=== PATIENT | male | born 1995 | race Caucasian/White ===

== ENCOUNTER 2017-01-22 09:38 | Observation (INO) | payer BC, OTHER ==
[2017-01-22 09:40] VITALS: BP 153/66; PULSE 118; RESP 24; TEMP 97.9; O2SAT 95
[2017-01-22 09:52] VITALS: RESP 20
[2017-01-22] MEDS ORDERED: VANCOMYCIN INJ 1,250 MG in SODIUM CHLOR 0.9% 250 ML INJ 250 ML IV ONE (10:00)
[2017-01-22] MEDS ORDERED: HYDROmorphone HCL PF 1 MG/ML VIAL IV PUSH ONE ×2 (10:15→12:30)
[2017-01-22 10:33] LABS: AUTOMATED NEUTROPHIL # 6.8 TH/MM3 (1.8-7.7); BASOPHIL # 0.2 TH/MM3 (0-0.2); BASOPHIL % 1.7 % (0.0-2.0); EOSINOPHIL # 0.2 TH/MM3 (0-0.4); EOSINOPHIL % 1.7 % (0.0-4.0); HEMATOCRIT 43.8 % (39.0-51.0); LYMPH % 20.5 % (9.0-44.0); LYMPHOCYTE # 2.1 TH/MM3 (1.0-4.8); MEAN CELL VOLUME 93.6 FL (80.0-100.0); MEAN CORPUSCULAR HEMOGLOBIN 31.9 PG (27.0-34.0); MONO % 8.2 % (0.0-8.0); NEUT % 67.9 % (16.0-70.0); PLATELET COUNT 236 TH/MM3 (150-450); RED BLOOD COUNT 4.68 MIL/MM3 (4.50-5.90); RED CELL DISTRIBUTION WIDTH 13.3 % (11.6-17.2)
[2017-01-22 10:39] LABS: HEMO FLAGS AUTO DIFF
[2017-01-22 10:59] LABS: ANION GAP 9 MEQ/L (5-15); AST (GOT) 43 U/L (15-37); BICARBONATE 26.4 MEQ/L (21.0-32.0); BLOOD UREA NITROGEN 11 MG/DL (7-18); CHLORIDE 104 MEQ/L (98-107); GLOMERULAR FILTRATION RATE 116 ML/MIN (>89); POTASSIUM 3.6 MEQ/L (3.5-5.1); SODIUM (NA) 139 MEQ/L (136-145)
--- NOTE | 2017-01-22 11:02 | RADRPT ---
EXAM DATE/TIME: 01/22/2017 10:32 [facility] COMPARISON: No previous studies available for comparison. INDICATIONS : Inflammation. Pt. has severe pain, swelling, and redness in left, first digit that is now radiating u p his arm. MEDICAL HISTORY : None. SURGICAL HISTORY : None. ENCOUNTER: Initial ACUITY: 4 - 6 days PAIN SCORE: 10/10 LOCATION: Left thumb. FINDINGS: There is generalized soft tissue swelling of the first digit and thenar eminence. Alignment is anato bairon. Fracture is not appreciated. CONCLUSION: Generalized soft tissue swelling. There is no evidence for fracture or radiopaque foreign body. Inf lammatory process is suspected. Reinaldo Padron MD FACR on January 22, 2017 at 10:47 Board Certified Radiologist. This report was verified electronically.
[2017-01-22 11:03] LABS: ALKALINE PHOSPHATASE 83 U/L (45-117); ALT (GPT) 107 U/L (12-78)
[2017-01-22 11:18] LABS: SCAN/DIFF AUTO DIFF CONFIRMED
--- NOTE | 2017-01-22 11:41 | PD ---
HPI Chief Complaint: Skin Problem Time Seen by Provider: 09:50 Travel History International Travel<30 days: No Contact w/Intl Traveler<30days: No Traveled to known affect area: No History of Present Illness HPI This is a 23-year-old male who presents to the emergency department with 5 days of increasing pain involving his left thumb, constant, moderate severity, spreading to involve his second digit and hand. He denies any fevers or chills. He has a remote history of IV drug use but says he hasn't used in a year. He thinks he got bit by a bug. PFSH Past Medical History Asthma: No Heart Rhythm Problems: No Cardiovascular Problems: No Chest Pain: No Cystic Fibrosis: No Diminished Hearing: No Headaches: No Hypertension: No Neurologic: No Respiratory: No Migraines: No Seizures: No Sickle Cell Disease: No Sleep Apnea: No Past Surgical History Abdominal Surgery: No Appendectomy: No Cardiac Surgery: No Cholecystectomy: No Ear Surgery: Yes (TUBES(PLASTIC EARS)) Endocrine Surgery: No Eye Surgery: No Genitourinary Surgery: No Gynecologic Surgery: No Neurologic Surgery: No Oral Surgery: No Thoracic Surgery: No Social History Alcohol Use: Yes (SOCIAL) Tobacco Use: Yes (1PPWEEK) Substance Use: Yes (pt states "everything".. DENIES RECENT USE) Allergies-Medications (Allergen,Severity, Reaction): Coded Allergies: No Known Allergies (Verified , 02/23/16) Reported Meds & Prescriptions Reported Meds & Active Scripts Active Active Prescriptions or Reported Medications Unobtainable Review of Systems Except as stated in HPI: all other systems reviewed are Neg Physical Exam Narrative GENERAL:Well appearing, no acute distress SKIN: Erythema and swelling of the left first digit with focal fluctuance immediately over the interphalangeal joint on the dorsal surface. Pain with flexion at the interphalangeal joint. Some erythema over the thenar eminence. HEAD: Atraumatic. Normocephalic. EYES: Pupils equal and round. No injection or drainage. ENT: Moist mucous membranes NECK: Trachea midline. CARDIOVASCULAR: Regular rate and rhythm. No murmur appreciated. RESPIRATORY: Clear to auscultation. Breath sounds equal bilaterally. GASTROINTESTINAL: Abdomen soft, non-tender, nondistended. MUSCULOSKELETAL: No obvious deformities. NEUROLOGICAL: Awake and alert. No obvious cranial nerve deficits. Moving all extremities. PSYCHIATRIC: Appropriate mood and affect; insight and judgment normal. Data Data Last Documented VS Vital Signs Date Time Temp Pulse Resp B/P Pulse Ox O2 Delivery O2 Flow Rate FiO2 01/22/17 11:47 95 18 149/61 97 01/22/17 09:40 97.9 Room Air Orders Complete Blood Count With Diff (01/22/17 09:54) Comprehensive Metabolic Panel (01/22/17 09:54) W[place]gren Sedimentation Rate (01/22/17 09:54) C-Reactive Protein (Crp) (01/22/17 09:54) Blood Culture (01/22/17 09:54) Vancomycin Inj (Vancomycin Inj) (01/22/17 10:00) Finger ([id number]) (01/22/17 ) Hydromorphone Pf Inj (Dilaudid Pf Inj) (01/22/17 10:15) Blood Culture (01/22/17 10:15) Ed Poc Ultrasound (01/22/17 ) Us Soft Tissue (01/22/17 ) Lidocaine Pf 1% Inj (Xylocaine-Mpf 1% In (01/22/17 12:15) Hydromorphone Pf Inj (Dilaudid Pf Inj) (01/22/17 12:30) Admit Order (Ed Use Only) (01/22/17 12:36) Labs Laboratory Tests Test 01/22/17 10:18 White Blood Count 10.0 TH/MM3 Red Blood Count 4.68 MIL/MM3 Hemoglobin 14.9 GM/DL Hematocrit 43.8 % Mean Corpuscular Volume 93.6 FL Mean Corpuscular Hemoglobin 31.9 PG Mean Corpuscular Hemoglobin 34.0 % Concent Red Cell Distribution Width 13.3 % Platelet Count 236 TH/MM3 Mean Platelet Volume 9.1 FL Neutrophils (%) (Auto) 67.9 % Lymphocytes (%) (Auto) 20.5 % Monocytes (%) (Auto) 8.2 % Eosinophils (%) (Auto) 1.7 % Basophils (%) (Auto) 1.7 % Neutrophils # (Auto) 6.8 TH/MM3 Lymphocytes # (Auto) 2.1 TH/MM3 Monocytes # (Auto) 0.8 TH/MM3 Eosinophils # (Auto) 0.2 TH/MM3 Basophils # (Auto) 0.2 TH/MM3 CBC Comment AUTO DIFF Differential Comment AUTO DIFF CONFIRMED Erythrocyte Sedimentation Rate 5 mm/hr Sodium Level 139 MEQ/L Potassium Level 3.6 MEQ/L Chloride Level 104 MEQ/L Carbon Dioxide Level 26.4 MEQ/L Anion Gap 9 MEQ/L Blood Urea Nitrogen 11 MG/DL Creatinine 0.83 MG/DL Estimat Glomerular Filtration 116 ML/MIN Rate Random Glucose 78 MG/DL Calcium Level 9.1 MG/DL Total Bilirubin 1.0 MG/DL Aspartate Amino Transf 43 U/L (AST/SGOT) Alanine Aminotransferase 107 U/L (ALT/SGPT) Alkaline Phosphatase 83 U/L C-Reactive Protein 0.49 MG/DL Total Protein 7.5 GM/DL Albumin 4.4 GM/DL MDM Medical Decision Making Medical Screen Exam Complete: Yes Emergency Medical Condition: Yes Interpretation(s) Afebrile, tachycardic, hypertensive No leukocytosis Sedimentation rate is 5 CRP is 0.49 Electrolytes are reassuring Last 24 hours Impressions Soft Tissue Ultrasound 01/22/17 0000 Signed Impressions: Service Date/Time: Sunday, January 22, 2017 10:57 - CONCLUSION: Indurated tissue probably inflammatory without abscess formation.. Reinaldo Padron MD FACR Differential Diagnosis Abscess, cellulitis, septic arthritis, flexor tenosynovitis Narrative Course This is a 21-year-old male who presents to the emergency department with swelling of his left thumb. He was placed on a monitor and an IV was established. He does have a history of IV drug use. Ultrasound was obtained which demonstrates a phlegmon approximately 2 cm. A bedside incision and drainage was performed after discussion with Dr. Lazaro. Patient was placed on vancomycin and will be admitted for IV antibiotics. Cultures were obtained to rule out endocarditis. Diagnosis Primary Impression: Abscess of thumb Qualified Code: L02.512 - Abscess of thumb, left Admitting Information Admitting Physician Requests: Admit Scripts Unable to Obtain Active Prescriptions or Reported Meds Sury Haji MD January 22, 2017 11:41
[2017-01-22 11:47] VITALS: BP 149/61; PULSE 95; RESP 18; O2SAT 97
--- NOTE | 2017-01-22 11:47 | RADRPT ---
EXAM DATE/TIME: 01/22/2017 10:57 [facility] COMPARISON: No previous studies available for comparison. INDICATIONS : Left thumb swelling and pain. MEDICAL HISTORY : Left thumb pain and swelling. SURGICAL HISTORY : None. ENCOUNTER: Initial ACUITY: 4-6 days PAIN SCORE: 10/10 LOCATION: Left thumb. AREA EVALUATED: Left thumb. FINDINGS: As the complex area measuring 2 cm that is confined to the deep and superficial tissues without defin ed fluid collection. Early premature process without abscess would be consideration. CONCLUSION: Indurated tissue probably inflammatory without abscess formation.. Reinaldo Padron MD FACR on January 22, 2017 at 11:24 Board Certified Radiologist. This report was verified electronically.
[2017-01-22] MEDS ORDERED: LIDOCAINE HCL 1% PF 30 ML VIAL NERV BLOCK ONE (12:15)
[2017-01-22 12:48] VITALS: BP 121/67; PULSE 81; RESP 16; O2SAT 98
--- NOTE | 2017-01-22 13:00 | PD ---
Physical Exam Date Seen by Provider: January 22, 2017 Time Seen by Provider: 12:59 Narrative 21-year-old male that presents to the ED for evaluation of abscess to the left first digit. I was asked by my attending to incise and drain abscess. Please refer to her note. Data Data Last Documented VS Vital Signs Date Time Temp Pulse Resp B/P Pulse Ox O2 Delivery O2 Flow Rate FiO2 01/22/17 11:47 95 18 149/61 97 01/22/17 09:40 97.9 Room Air Orders Complete Blood Count With Diff (01/22/17 09:54) Comprehensive Metabolic Panel (01/22/17 09:54) Westergren Sedimentation Rate (01/22/17 09:54) C-Reactive Protein (Crp) (01/22/17 09:54) Blood Culture (01/22/17 09:54) Vancomycin Inj (Vancomycin Inj) (01/22/17 10:00) Finger ([id number]) (01/22/17 ) Hydromorphone Pf Inj (Dilaudid Pf Inj) (01/22/17 10:15) Blood Culture (01/22/17 10:15) Ed Poc Ultrasound (01/22/17 ) Us Soft Tissue (01/22/17 ) Lidocaine Pf 1% Inj (Xylocaine-Mpf 1% In (01/22/17 12:15) Hydromorphone Pf Inj (Dilaudid Pf Inj) (01/22/17 12:30) Admit Order (Ed Use Only) (01/22/17 12:36) Labs Laboratory Tests Test 01/22/17 10:18 White Blood Count 10.0 TH/MM3 Red Blood Count 4.68 MIL/MM3 Hemoglobin 14.9 GM/DL Hematocrit 43.8 % Mean Corpuscular Volume 93.6 FL Mean Corpuscular Hemoglobin 31.9 PG Mean Corpuscular Hemoglobin 34.0 % Concent Red Cell Distribution Width 13.3 % Platelet Count 236 TH/MM3 Mean Platelet Volume 9.1 FL Neutrophils (%) (Auto) 67.9 % Lymphocytes (%) (Auto) 20.5 % Monocytes (%) (Auto) 8.2 % Eosinophils (%) (Auto) 1.7 % Basophils (%) (Auto) 1.7 % Neutrophils # (Auto) 6.8 TH/MM3 Lymphocytes # (Auto) 2.1 TH/MM3 Monocytes # (Auto) 0.8 TH/MM3 Eosinophils # (Auto) 0.2 TH/MM3 Basophils # (Auto) 0.2 TH/MM3 CBC Comment AUTO DIFF Differential Comment AUTO DIFF CONFIRMED Erythrocyte Sedimentation Rate 5 mm/hr Sodium Level 139 MEQ/L Potassium Level 3.6 MEQ/L Chloride Level 104 MEQ/L Carbon Dioxide Level 26.4 MEQ/L Anion Gap 9 MEQ/L Blood Urea Nitrogen 11 MG/DL Creatinine 0.83 MG/DL Estimat Glomerular Filtration 116 ML/MIN Rate Random Glucose 78 MG/DL Calcium Level 9.1 MG/DL Total Bilirubin 1.0 MG/DL Aspartate Amino Transf 43 U/L (AST/SGOT) Alanine Aminotransferase 107 U/L (ALT/SGPT) Alkaline Phosphatase 83 U/L C-Reactive Protein 0.49 MG/DL Total Protein 7.5 GM/DL Albumin 4.4 GM/DL [facility] Medical Record Reviewed: Yes Supervised Visit with DAVID: No Procedures Procedure Narrative After the risks and benefits were discussed the following procedure was performed: INCISION AND DRAINAGE OF ABSCESS: The area was prepped and was sterilely draped. A subcutaneous wheal of 1 % Xylocaine with a total number 10 mL was used to anesthetize the area by digital block. The area was properly anesthetized. A number 11 scalpel was used to make a 1 -cm incision across the area of the abscess. Cultures were obtained. The abscess was drained an irrigated with normal saline. Quarter inch iodoform packing was placed in the wound. Sterile dressing applied. Patient advised to have packing removed in two days. Scripts Unable to Obtain Active Prescriptions or Reported Meds Conor Cooper January 22, 2017 13:00
--- NOTE | 2017-01-22 13:15 | HHI.HP ---
[facility] Service Family Medicine Primary Care Physician No Primary Care Physician Admission Diagnosis abscess Diagnoses: International Travel<30 Days: No Contact w/Intl Traveler<30days: No Known Affected Area: No History of Present Illness This is a 21-year-old male with past medical history significant for IV drug use. He is coming to the ED for 5 day history of increasing pain in his left thumb. He has been having some swelling of the left thumb throughout that timeframe as well and some erythema of the thumb. 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 He also thinks he may been bitten by a bug. The pain continued to worsen and he tried to self medicate. He took one antibiotic pill that his boss gave him on Wednesday01/20/17, he said that helps that day but then it worsened more the next. As for the pain he tried to self medicate by taking whatever he could off the streets. He tried morphine, heroin, and methamphetamine. Says that the last couple days have been a blur. Anytime that he moves his hand he gets severe pain. The pain had been slowly progressing up his hand into his arm and chest. He felt the pain in his hand constantly but worsened with movement. At the time of exam I&D was performed and large amount of blood and pus was extracted. He says since then the pain in his hand has greatly improved. Of note he believes he had tetanus shot 4 years ago when he joined the . (Aki Calvillo MD R2) Review of Systems Constitutional: COMPLAINS OF: Fatigue, Fever, Change in appetite (decreased), DENIES: Weight gain, Weight loss Endocrine: DENIES: Heat/cold intolerance Eyes: DENIES: Blurred vision, Vision loss Ears, nose, mouth, throat: DENIES: Hearing loss, Oral lesions, Throat pain, Running Nose Respiratory: DENIES: Cough, Sputum production, Shortness of breath Cardiovascular: COMPLAINS OF: Chest pain (pressure) Gastrointestinal: DENIES: Abdominal pain, Constipation, Diarrhea, Nausea, Vomiting Musculoskeletal: COMPLAINS OF: Joint pain (Left Thumb), DENIES: Muscle aches, Joint Swelling, Back pain Integumentary: COMPLAINS OF: Rash (cellulitis) Hematologic/lymphatic: DENIES: Bruising Neurologic: DENIES: Abnormal gait, Seizures, Tremor Psychiatric: DENIES: Anxiety, Depression (Aik Calvillo MD R2) Past Family Social History Past Medical History Denies Past Surgical History Left ear cosmetic Reported Medications Reported Meds & Active Scripts Active Active Prescriptions or Reported Medications Unobtainable (Aki Calvillo MD R2) Allergies: Coded Allergies: No Known Allergies (Verified , 02/23/16) Family History none reported Social History Live in [place] with roommate and girlfriend smoke working to quit at 2 cigarettes a day, started at 18 Occasional alcohol last drink last night was 2 shots of whiskey and 4 pack of beer. Denies withdraw Used IV morphine and meth and synthetic marijuana recently to dual the pain Smokes weed (Aki Calvillo MD R2) Physical Exam Vital Signs Vital Signs Date Time Temp Pulse Resp B/P Pulse Ox O2 Delivery O2 Flow Rate FiO2 01/22/17 12:48 81 16 121/67 98 01/22/17 11:47 95 18 149/61 97 01/22/17 09:52 20 01/22/17 09:40 97.9 118 24 153/66 95 Room Air Physical Exam GENERAL:Well appearing, no acute distress SKIN: Erythema and swelling of the left first digit with incision on the anterior aspect of the thumb. Pain with flexion at the interphalangeal joint. Some erythema over the thenar eminence. HEAD: Atraumatic. Normocephalic. EYES: Pupils equal and round. No injection or drainage. ENT: Moist mucous membranes NECK: Trachea midline. CARDIOVASCULAR: Regular rate and rhythm. No murmur appreciated. RESPIRATORY: Clear to auscultation. Breath sounds equal bilaterally. GASTROINTESTINAL: Abdomen soft, non-tender, nondistended. MUSCULOSKELETAL: No obvious deformities. NEUROLOGICAL: Awake and alert. No obvious cranial nerve deficits. Moving all extremities. PSYCHIATRIC: Appropriate mood and affect; insight and judgment normal. Laboratory Laboratory Tests Test 01/22/17 10:18 White Blood Count 10.0 Red Blood Count 4.68 Hemoglobin 14.9 Hematocrit 43.8 Mean Corpuscular Volume 93.6 Mean Corpuscular Hemoglobin 31.9 Mean Corpuscular Hemoglobin 34.0 Concent Red Cell Distribution Width 13.3 Platelet Count 236 Mean Platelet Volume 9.1 Neutrophils (%) (Auto) 67.9 Lymphocytes (%) (Auto) 20.5 Monocytes (%) (Auto) 8.2 Eosinophils (%) (Auto) 1.7 Basophils (%) (Auto) 1.7 Neutrophils # (Auto) 6.8 Lymphocytes # (Auto) 2.1 Monocytes # (Auto) 0.8 Eosinophils # (Auto) 0.2 Basophils # (Auto) 0.2 CBC Comment AUTO DIFF Differential Comment AUTO DIFF CONFIRMED Erythrocyte Sedimentation Rate 5 Sodium Level 139 Potassium Level 3.6 Chloride Level 104 Carbon Dioxide Level 26.4 Anion Gap 9 Blood Urea Nitrogen 11 Creatinine 0.83 Estimat Glomerular Filtration 116 Rate Random Glucose 78 Calcium Level 9.1 Total Bilirubin 1.0 Aspartate Amino Transf 43 (AST/SGOT) Alanine Aminotransferase 107 (ALT/SGPT) Alkaline Phosphatase 83 C-Reactive Protein 0.49 Total Protein 7.5 Albumin 4.4 Date/Time Procedure Status Source Growth 01/22/17 10:55 Aerobic Blood Culture Received Blood Peripheral Pending 01/22/17 10:55 Anaerobic Blood Culture Received Blood Peripheral Pending (Aki Calvillo MD R2) Result Diagram: 01/22/17 1018 01/22/17 1018 Imaging Last Impressions Soft Tissue Ultrasound 01/22/17 0000 Signed Impressions: Service Date/Time: Sunday, January 22, 2017 10:57 - CONCLUSION: Indurated tissue probably inflammatory without abscess formation.. Reinaldo Padron MD FACR (Aki Calvillo MD R2) Assessment and Plan Assessment and Plan This is a 21-year-old male with past medical history significant for IV drug use. Being admitted for abscess and cellulitis of the left thumb. Code Status Full code Discussed Condition With [facility]: Dr. Lake (Aki Calvillo MD R2) Attending Attestation Patient seen and examined. Case reviewed and discussed with the resident team. Agree with plan of care as discussed with me and documented in the resident note. pt seen on admission (Yenifer Lake MD) Problem List: (1) Abscess of thumb Status: Acute Plan: Abscess seen with ultrasound. Status post drainage on 01/22/17. * Admit to observation. * Hand surgery consulted. * Vancomycin 1 g IV every 12 hours * Pain control with [place] per pain scale and morphine as breakthrough pain * CBC, BMP ordered for the a.m. * Cultures pending * Wound cultures from ID pending (2) Drug abuse Status: Acute Plan: History of IV drug abuse. Current self-medication with morphine, methamphetamine, heroin for pain from abscess. * [facility] protocol (3) Nutrition, metabolism, and development symptoms Status: Acute Plan: Diet: Regular diet, anticipate nothing by mouth at midnight for possible surgery (patient refuses to be NPO at this time or else we'll leave) Out of bed ad brady. Monitor electrolytes and replace accordingly Fluids by mouth Vitals every 4 DVD prophylaxis with SCDs, holding pharmaceutical prophylaxis for possible surgery (Aki Calvillo MD R2) Problem Qualifiers (1) Abscess of thumb: Qualified Code: L02.512 - Abscess of thumb, left Aki Calvillo MD R2 January 22, 2017 13:15 Yenifer Lake MD January 23, 2017 11:52
[2017-01-22] MEDS ORDERED: ACETAMINOPHEN/HYDROcodone 325 MG/5 MG TAB PO PRN (13:30)
[2017-01-22] MEDS ORDERED: ACETAMINOPHEN/HYDROcodone 325 MG/7.5 MG TAB PO PRN (13:30)
[2017-01-22] MEDS ORDERED: SODIUM CHLORIDE 0.9% FLUSH 10 ML FLUSH IV FLUSH PRN ×2 (13:30→13:45)
[2017-01-22] MEDS ORDERED: DIPHTH/TETANUS/ACEL PERTUSSIS (BOOSTER) 0.5 ML VIAL/PFS IM ONE (13:45)
[2017-01-22] MEDS ORDERED: LORazepam 2 MG TAB PO PRN (13:45)
[2017-01-22] MEDS ORDERED: HYDROmorphone HCL PF 1 MG/ML VIAL IV PUSH PRN (13:45)
[2017-01-22] MEDS ORDERED: LORazepam 1 MG TAB PO PRN (13:45)
[2017-01-22] MEDS ORDERED: FLUMAZENIL 0.5 MG/5 ML VIAL IV PUSH PRN (13:45)
[2017-01-22] MEDS ORDERED: LORazepam 2 MG/ML VIAL IV PUSH PRN ×4 (13:45)
[2017-01-22 15:28] VITALS: BP 143/67; PULSE 87; RESP 21; TEMP 98; O2SAT 100
[2017-01-22] MEDS: SODIUM CHLORIDE 0.9% FLUSH 10 ML FLUSH IV FLUSH SCH (20:34)
[2017-01-22] MEDS: VANCOMYCIN INJ 1,000 MG in SODIUM CHLOR 0.9% 250 ML INJ 250 ML IV SCH (23:30)
[2017-01-23 05:36] VITALS: BP 122/75; PULSE 75; RESP 18; TEMP 98; O2SAT 96
[2017-01-23 08:25] LABS: AUTOMATED NEUTROPHIL # 10.4 TH/MM3 (1.8-7.7); BASOPHIL # 0.1 TH/MM3 (0-0.2); BASOPHIL % 0.4 % (0.0-2.0); EOSINOPHIL # 0.2 TH/MM3 (0-0.4); EOSINOPHIL % 1.7 % (0.0-4.0); HEMATOCRIT 45.6 % (39.0-51.0); HEMO FLAGS DIFF FINAL; LYMPH % 11.1 % (9.0-44.0); LYMPHOCYTE # 1.5 TH/MM3 (1.0-4.8); MEAN CELL VOLUME 93.9 FL (80.0-100.0); MEAN CORPUSCULAR HEMOGLOBIN 31.1 PG (27.0-34.0); MEAN CORPUSCULAR HGB CONC 33.1 % (32.0-36.0); MONO % 7.3 % (0.0-8.0); NEUT % 79.5 % (16.0-70.0); PLATELET COUNT 244 TH/MM3 (150-450); RED BLOOD COUNT 4.86 MIL/MM3 (4.50-5.90); RED CELL DISTRIBUTION WIDTH 13.1 % (11.6-17.2); WHITE BLOOD COUNT 13.1 TH/MM3 (4.0-11.0)
[2017-01-23 08:41] VITALS: BP 136/67; PULSE 80; RESP 18; TEMP 97.8; O2SAT 95
[2017-01-23 09:02] LABS: BICARBONATE 27.4 MEQ/L (21.0-32.0); POTASSIUM 3.9 MEQ/L (3.5-5.1)
[2017-01-23] MEDS: MULTIVITAMINS/MINERALS THERAPEUTIC TAB PO SCH (09:02)
[2017-01-23] MEDS: FOLIC ACID 1 MG TAB PO SCH (09:03)
[2017-01-23] MEDS: SODIUM CHLORIDE 0.9% FLUSH 10 ML FLUSH IV FLUSH SCH ×2 (09:03→21:12)
[2017-01-23] MEDS: THIAMINE HCL 100 MG TAB PO SCH (09:03)
[2017-01-23] MEDS: IBUPROFEN 800 MG TAB PO SCH ×3 (09:03→21:12)
[2017-01-23] MEDS: VANCOMYCIN INJ 1,000 MG in SODIUM CHLOR 0.9% 250 ML INJ 250 ML IV SCH ×2 (11:43→23:01)
--- NOTE | 2017-01-23 11:51 | HHI.HP ---
[facility] Service Family Medicine Primary Care Physician No Primary Care Physician Admission Diagnosis abscess Diagnoses: (1) Abscess of thumb Diagnosis: Principal (2) Drug abuse Diagnosis: Principal (3) Nutrition, metabolism, and development symptoms Diagnosis: Principal International Travel<30 Days: No Contact w/Intl Traveler<30days: No Known Affected Area: No History of Present Illness Mr Mata is a 21-year-old male with past medical history significant for IV drug use. He is coming to the ED for 5 day history of increasing pain in his left thumb. He has been having some swelling of the left thumb throughout that timeframe as well and some erythema of the thumb. 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 He also thinks he may been bitten by an insect. The pain continued to worsen and he tried to self medicate. He took one unknown antibiotic pill that his boss gave him on Wednesday01/20/17, he said that helped that day but then it worsened more the next. As for the pain he tried to self medicate by taking whatever he could off the streets. He tried morphine, heroin, and methamphetamine. Says that the last couple days before coming to the hospital have been a blur. Anytime that he moves his hand he gets severe pain. The pain had been slowly progressing up his hand into his arm and chest. He felt the pain in his hand constantly but worsened with movement. At the time of exam I&D was performed in the ED and large amount of blood and pus was extracted. He says since then the pain in his hand has greatly improved. Of note he believes he had tetanus shot 4 years ago when he joined the . Overnight he has continued to have erythema and edema of his hand. He has an increase in his WBC but only to 13 from 10. His area of erythema has extended into the palm of his hand from the thumb. He will not move his thumb because of pain and does have sensation in his hand and thumb. Review of Systems Other Constitutional: COMPLAINS OF: Fatigue, Fever, Change in appetite (decreased), DENIES: Weight gain, Weight loss Endocrine: DENIES: Heat/cold intolerance Eyes: DENIES: Blurred vision, Vision loss Ears, nose, mouth, throat: DENIES: Hearing loss, Oral lesions, Throat pain, Running Nose Respiratory: DENIES: Cough, Sputum production, Shortness of breath Cardiovascular: COMPLAINS OF: Chest pain (pressure) Gastrointestinal: DENIES: Abdominal pain, Constipation, Diarrhea, Nausea, Vomiting Musculoskeletal: COMPLAINS OF: Joint pain (Left Thumb), DENIES: Muscle aches, Joint Swelling, Back pain Integumentary: COMPLAINS OF: Rash (cellulitis) Hematologic/lymphatic: DENIES: Bruising Neurologic: DENIES: Abnormal gait, Seizures, Tremor Psychiatric: DENIES: Anxiety, Depression Past Family Social History Past Medical History Denies Past Surgical History Left ear cosmetic Allergies: Coded Allergies: No Known Allergies (Verified , 02/23/16) Family History none reported Social History Live in [place] with roommate and girlfriend smoke working to quit at 2 cigarettes a day, started at 18 Occasional alcohol last drink last night was 2 shots of whiskey and 4 pack of beer. Denies withdraw Used IV morphine and meth and synthetic marijuana recently to dual the pain Smokes weed Physical Exam Vital Signs Vital Signs Date Time Temp Pulse Resp B/P Pulse Ox O2 Delivery O2 Flow Rate FiO2 01/23/17 08:41 97.8 80 18 136/67 95 01/23/17 05:36 98.0 75 18 122/75 96 01/22/17 15:28 98.0 87 21 143/67 100 01/22/17 12:48 81 16 121/67 98 01/22/17 11:47 95 18 149/61 97 Physical Exam GENERAL:Well appearing, no acute distress except for pain in hand SKIN: Erythema and swelling of the left first digit with incision on the anterior aspect of the thumb. Pain with flexion at the interphalangeal joint. Some erythema over the thenar eminence. HEAD: Atraumatic. Normocephalic. EYES: Pupils equal and round. No injection or drainage. ENT: Moist mucous membranes NECK: Trachea midline. CARDIOVASCULAR: Regular rate and rhythm. No murmur appreciated. RESPIRATORY: Clear to auscultation. Breath sounds equal bilaterally. GASTROINTESTINAL: Abdomen soft, non-tender, nondistended. MUSCULOSKELETAL: No obvious deformities. NEUROLOGICAL: Awake and alert. No obvious cranial nerve deficits. Moving all extremities. PSYCHIATRIC: Appropriate mood and affect; insight and judgment normal. initially wanted to leave AMA but today seems to realize that this is a serious problem that needs adequate care Laboratory Laboratory Tests Test 01/23/17 01/23/17 07:45 09:10 White Blood Count 13.1 Red Blood Count 4.86 Hemoglobin 15.1 Hematocrit 45.6 Mean Corpuscular Volume 93.9 Mean Corpuscular Hemoglobin 31.1 Mean Corpuscular Hemoglobin 33.1 Concent Red Cell Distribution Width 13.1 Platelet Count 244 Mean Platelet Volume 9.4 Neutrophils (%) (Auto) 79.5 Lymphocytes (%) (Auto) 11.1 Monocytes (%) (Auto) 7.3 Eosinophils (%) (Auto) 1.7 Basophils (%) (Auto) 0.4 Neutrophils # (Auto) 10.4 Lymphocytes # (Auto) 1.5 Monocytes # (Auto) 1.0 Eosinophils # (Auto) 0.2 Basophils # (Auto) 0.1 CBC Comment DIFF FINAL Differential Comment Sodium Level 138 Potassium Level 3.9 Chloride Level 104 Carbon Dioxide Level 27.4 Anion Gap 7 Blood Urea Nitrogen 9 Creatinine 0.78 Estimat Glomerular Filtration 124 Rate Random Glucose 83 Calcium Level 8.8 Nasal Screen MRSA (PCR) MRSA DETECTED Date/Time Procedure Status Source Growth 01/23/17 09:10 Cancelled Nasopharyngeal 01/22/17 13:00 Gram Stain - Final Resulted Wound Finger 01/22/17 13:00 Wound Culture Resulted Wound Finger Pending 01/22/17 10:55 Aerobic Blood Culture - Preliminary Resulted Blood Peripheral NO GROWTH IN 1 DAY 01/22/17 10:55 Anaerobic Blood Culture - Preliminary Resulted Blood Peripheral NO GROWTH IN 1 DAY Result Diagram: 01/23/17 0745 01/23/17 0745 Imaging Last Impressions Soft Tissue Ultrasound 01/22/17 0000 Signed Impressions: Service Date/Time: Sunday, January 22, 2017 10:57 - CONCLUSION: Indurated tissue probably inflammatory without abscess formation.. Reinaldo Padron MD FACR Assessment and Plan Assessment and Plan This is a 21-year-old male with past medical history significant for IV drug use. Being admitted for abscess and cellulitis of the left thumb. Problem List: (1) Abscess of thumb Status: Acute Plan: Abscess seen with ultrasound. Status post drainage on 01/22/17. * Admitted to observation. * Hand surgery consulted. * Vancomycin 1 g IV every 12 hours * Pain control with [place] per pain scale and morphine as breakthrough pain * CBC, BMP ordered for today * Cultures pending * Wound cultures from ID pending so far , gram positive cocci in pairs. concern for staph aureus as he states he has had MRSA twice before (2) Drug abuse Status: Acute Plan: History of IV drug abuse. Current self-medication with morphine, methamphetamine, heroin for pain from abscess. * CIWA protocol (3) Nutrition, metabolism, and development symptoms Status: Acute Plan: Diet: Regular diet, anticipate nothing by mouth at midnight for possible surgery Unsure if he will need more extensive exploration of his hand with his swelling Out of bed ad brady. Monitor electrolytes and replace accordingly Fluids by mouth Vitals every 4 DVD prophylaxis with SCDs, holding pharmaceutical prophylaxis for possible surgery Problem Qualifiers (1) Abscess of thumb: Qualified Code: L02.512 - Abscess of thumb, left Yenifer Lake MD January 23, 2017 11:51
[2017-01-23 12:39] VITALS: BP 123/67; PULSE 73; RESP 18; TEMP 98; O2SAT 95
[2017-01-23 16:16] VITALS: BP 128/60; PULSE 68; RESP 18; TEMP 97.9; O2SAT 96
[2017-01-23 21:15] VITALS: BP 130/77; PULSE 82; RESP 20; TEMP 97.8; O2SAT 97
[2017-01-24 00:23] VITALS: BP 109/51; PULSE 70; RESP 21; TEMP 98; O2SAT 97
[2017-01-24 04:27] VITALS: BP 129/73; PULSE 65; RESP 20; O2SAT 98
[2017-01-24] MEDS: IBUPROFEN 800 MG TAB PO SCH (06:27)
[2017-01-24 07:43] LABS: AUTOMATED NEUTROPHIL # 6.9 TH/MM3 (1.8-7.7); BASOPHIL % 0.5 % (0.0-2.0); EOSINOPHIL # 0.2 TH/MM3 (0-0.4); EOSINOPHIL % 2.5 % (0.0-4.0); HEMATOCRIT 43.6 % (39.0-51.0); HEMO FLAGS DIFF FINAL; LYMPH % 14.7 % (9.0-44.0); LYMPHOCYTE # 1.4 TH/MM3 (1.0-4.8); MEAN CELL VOLUME 93.6 FL (80.0-100.0); MEAN CORPUSCULAR HEMOGLOBIN 31.8 PG (27.0-34.0); MONO % 7.5 % (0.0-8.0); NEUT % 74.8 % (16.0-70.0); PLATELET COUNT 247 TH/MM3 (150-450); RED BLOOD COUNT 4.66 MIL/MM3 (4.50-5.90); RED CELL DISTRIBUTION WIDTH 13.3 % (11.6-17.2); WHITE BLOOD COUNT 9.3 TH/MM3 (4.0-11.0)
[2017-01-24 08:32] VITALS: BP 128/60; PULSE 68; RESP 18; TEMP 98.2; O2SAT 96
[2017-01-24] MEDS: MULTIVITAMINS/MINERALS THERAPEUTIC TAB PO SCH (09:06)
[2017-01-24] MEDS: FOLIC ACID 1 MG TAB PO SCH (09:06)
[2017-01-24] MEDS: THIAMINE HCL 100 MG TAB PO SCH (09:07)
[2017-01-24] MEDS: SODIUM CHLORIDE 0.9% FLUSH 10 ML FLUSH IV FLUSH SCH (09:07)
--- NOTE | 2017-01-24 09:17 | HHI.FPPN ---
Subjective Remarks Patient was seen and examined this morning. He states he will leave this morning to take care of home matters which are urgent. He states his pain is 1-2 /10 in severity. He denies any fevers, chills. He agrees to take PO meds if script is given. He then urgently left the ED with IV still in place, was escorted back for IV removal. (Sabian Pacheco MD R1) Objective Vitals Vital Signs Date Time Temp Pulse Resp B/P Pulse Ox O2 Delivery O2 Flow Rate FiO2 01/24/17 08:32 98.2 68 18 128/60 96 01/24/17 04:27 65 20 129/73 98 01/24/17 00:23 98.0 70 21 109/51 97 01/23/17 21:15 97.8 82 20 130/77 97 01/23/17 16:16 97.9 68 18 128/60 96 01/23/17 12:39 98.0 73 18 123/67 95 I/O 01/23/17 01/23/17 01/23/17 01/24/17 01/24/17 01/24/17 07:00 15:00 23:00 07:00 15:00 23:00 Intake Total 200 ml 400 ml Output Total 500 ml 1000 ml Balance -300 ml -600 ml Intake Oral 200 ml 400 ml Output Urine Total 500 ml 1000 ml # Voids 1 1 (Sabina Pacheco MD R1) Result Diagram: 01/24/17 0722 01/23/17 0745 Objective Remarks General: well-appearing male sitting up in bed in no distress, eating breakfast. Left thumb wrapped in gauze, no surrounding erythema. Runs out of room to leave after phone conversation. Patient left AMA Medications and IVs Inpatient Medications Acetaminophen/ Hydrocodone Bitart 1 tab 1 tab Q4H PRN PO PAIN SCALE 6 TO 10; Start 01/22/17 at 13:30; Stop 01/24/17 at 09:29; Status DC Acetaminophen/ Hydrocodone Bitart ([place]ow 5-325 Mg) 1 tab Q4H PRN PO PAIN SCALE 1 TO 5; Start 01/22/17 at 13:30; Stop 01/24/17 at 09:29; Status DC Diphtheria/ Tetanus/Acell Pertussis (Boostrix Inj) 0.5 ml ONCE ONCE IM Last administered on 01/22/17 13:45; Start 01/22/17 at 13:45; Stop 01/22/17 at 14:32 ; Status DC Doxycycline Hyclate (Vibramycin) 100 mg BID PO ; Start 01/24/17 at 09:30; Stop 01/24/17 at 09:30; Status DC Flumazenil (Romazicon Inj) 0.2 mg Q1M PRN IV PUSH SEE LABEL COMMENTS; Start 08/29 at 13:45; Stop 01/24/17 at 09:29; Status DC Folic Acid (Folate) 1 mg DAILY PO Last administered on 01/24/17 09:06; Start 01/23/17 at 09:00; Stop 01/24/17 at 09:29; Status DC Hydromorphone HCl (Dilaudid Pf Inj) 1 mg Q4H PRN IV PUSH BREAKTHROUGH PAIN; Start 01/22/17 at 13:45; Stop 01/24/17 at 09:29; Status DC Ibuprofen (Motrin) 800 mg Q8HR PO Last administered on 01/24/17 06:27; Start 01/23/17 at 08:36; Stop 01/24/17 at 09:29; Status DC Lidocaine HCl (Xylocaine-Mpf 1% Inj) 10 ml ONCE ONCE NERV BLOCK Last administered on 01/22/17 12:15; Start 01/22/17 at 12:15; Stop 01/22/17 at 12:16 ; Status DC Lorazepam (Ativan Inj) 2 mg Q15M PRN IV PUSH CIWA > 20; Start 01/22/17 at 13:45 ; Stop 01/24/17 at 09:29; Status DC Lorazepam (Ativan) 2 mg Q2H PRN PO CIWA 11-14; Start 01/22/17 at 13:45; Stop at 09:29; Status DC Multivitamins/ Minerals Therapeutic (Theragran M Tab) 1 tab DAILY PO Last administered on 01/24/17 09:06; Start 01/23/17 at 09:00; Stop 01/24/17 at 09:16 ; Status DC Sodium Chloride (NS Flush) 2 ml UNSCH PRN IV FLUSH FLUSH AFTER USING IV ACCESS Last administered on 01/23/17 23:01; Start 01/22/17 at 13:30; Stop 01/24/17 at 09:29; Status DC Thiamine HCl (Vitamin B1) 100 mg DAILY PO Last administered on 01/24/17 09:07 ; Start 01/23/17 at 09:00; Stop 01/24/17 at 09:29; Status DC Trimethoprim/ Sulfamethoxazole (Bactrim Ds 800-160 Mg) 2 tab Q12HR PO ; Start at 09:30; Stop 01/24/17 at 09:30; Status DC Vancomycin HCl/ Sodium Chloride (Vancomycin Inj/ NS 250 ml Inj) 250 ml @ 250 mls/hr Q12H IV Last administered on 01/23/17 23:01; Start 01/22/17 at 23:00; Stop 01/24/17 at 09:16; Status DC (Sabina Pacheco MD R1) Urinary Catheter: No (Sabina Pacheco MD R1) Vascular Central Line Catheter: No (Sabina Pacheco MD R1) A/P Assessment and Plan This is a 21-year-old male with past medical history significant for IV drug use. Being admitted for abscess and cellulitis of the left thumb. Discharge Planning Left AMA -see AMA note (Sabina Pacheco MD R1) Attending Attestation Patient seen and examined. Case reviewed and discussed with the resident team. Agree with plan of care as discussed with me and documented in the resident note. (Yenifer Lake MD) Problem List: (1) Abscess of thumb Status: Acute Plan: Abscess seen with ultrasound. Status post drainage on 01/22/17. * Admitted to observation. * Hand surgery consulted, recommended I&D and home * Vancomycin 1 g IV every 12 hours x 2 days, given scripts for Doxy and Bactrim DS upon discharge AMA * Pain control with [place] per pain scale and morphine as breakthrough pain * CBC, BMP ordered for today * Cultures ++++MRSA * Wound cultures from ID pending so far , gram positive cocci in pairs. concern for staph aureus as he states he has had MRSA twice before (2) Drug abuse Status: Acute Plan: History of IV drug abuse. Current self-medication with morphine, methamphetamine, heroin for pain from abscess. * CIWA protocol * No pain medications given at discharge (3) Nutrition, metabolism, and development symptoms Status: Acute Plan: Diet: Regular diet, anticipate nothing by mouth at midnight for possible surgery Unsure if he will need more extensive exploration of his hand with his swelling Out of bed ad brady. Monitor electrolytes and replace accordingly Fluids by mouth Vitals every 4 DVD prophylaxis with SCDs, holding pharmaceutical prophylaxis for possible surgery (Sabina Pacheco MD R1) Problem Qualifiers (1) Abscess of thumb: Qualified Code: L02.512 - Abscess of thumb, left Sabina Pacheco MD R1 January 24, 2017 09:17 Yenifer Lake MD January 27, 2017 13:23
[2017-01-24] MEDS ORDERED: DOXY100C PO ×2 (09:20→09:22)
[2017-01-24] MEDS ORDERED: BACT800T5 PO (09:22)
--- NOTE | 2017-01-24 09:26 | PD.AMA ---
Against Medical Advice Note Diagnosis: (1) Abscess of thumb (2) Drug abuse Discharge Disposition: Against Medical Advice Pt Condition on Discharge: Stable Recommended Treatment Course Continued course of PO antibiotics, which were given by paper script to patient AMA Statement Patient Bret Mata has decided to leave the hospital against medical advice on 01/23/17. This patient has the capacity to refuse care and understands the risks of leaving, including permanent disability and/or , and has had an opportunity to ask questions about his condition. The patient has been informed that he may return for care at any time, and follow up has been arranged/advised. He was given Rx for Bactrim DS and Doxycycline, to complete a 10-day course of PO antibiotics. No follow-up plans were made. He should not be admitted to Family Medicine Service if he is re-admitted. Sabina Pacheco MD R1 January 24, 2017 09:26
[2017-01-24] MEDS ORDERED: DOXYCYCLINE HYCLATE 100 MG CAP PO SCH (09:30)
[2017-01-24] MEDS ORDERED: SULFAMETHOXAZOLE-TRIMETHOPRIM DS 800-160 MG TAB PO SCH (09:30)
--- NOTE | 2017-01-24 11:02 | HHI.DS ---
Discharge Summary Admission Date January 22, 2017 at 12:38 Discharge Date: January 24, 2017 Admitting Diagnosis abscess (1) Abscess of thumb Diagnosis: Principal Plan: Abscess seen with ultrasound. Status post drainage on 01/22/17. * Admitted to observation. * Hand surgery consulted, recommended I&D and home * Vancomycin 1 g IV every 12 hours x 2 days, given scripts for Doxy and Bactrim DS upon discharge AMA * Pain control with [place] per pain scale and morphine as breakthrough pain * CBC, BMP ordered for today * Cultures ++++MRSA * Wound cultures from ID pending so far , gram positive cocci in pairs. concern for staph aureus as he states he has had MRSA twice before (2) Drug abuse Diagnosis: Secondary Plan: History of IV drug abuse. Current self-medication with morphine, methamphetamine, heroin for pain from abscess. * CIWA protocol * No pain medications given at discharge (3) Nutrition, metabolism, and development symptoms Diagnosis: Secondary Plan: Diet: Regular diet, anticipate nothing by mouth at midnight for possible surgery Unsure if he will need more extensive exploration of his hand with his swelling Out of bed ad brady. Monitor electrolytes and replace accordingly Fluids by mouth Vitals every 4 DVD prophylaxis with SCDs, holding pharmaceutical prophylaxis for possible surgery [facility] - Dr. Lazaro Procedures I&D 01/22/17 Brief History Mr Mata is a 21-year-old male with past medical history significant for IV drug use. He is coming to the ED for 5 day history of increasing pain in his left thumb. He has been having some swelling of the left thumb throughout that timeframe as well and some erythema of the thumb. 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 He also thinks he may been bitten by an insect. The pain continued to worsen and he tried to self medicate. He took one unknown antibiotic pill that his boss gave him on Wednesday01/20/17, he said that helped that day but then it worsened more the next. As for the pain he tried to self medicate by taking whatever he could off the streets. He tried morphine, heroin, and methamphetamine. Says that the last couple days before coming to the hospital have been a blur. Anytime that he moves his hand he gets severe pain. The pain had been slowly progressing up his hand into his arm and chest. He felt the pain in his hand constantly but worsened with movement. At the time of exam I&D was performed in the ED and large amount of blood and pus was extracted. He says since then the pain in his hand has greatly improved. Of note he believes he had tetanus shot 4 years ago when he joined the . Overnight he has continued to have erythema and edema of his hand. He has an increase in his WBC but only to 13 from 10. His area of erythema has extended into the palm of his hand from the thumb. He will not move his thumb because of pain and does have sensation in his hand and thumb. CBC/BMP: 01/24/17 0722 01/23/17 0745 Significant Findings Laboratory Tests Test 01/22/17 01/23/17 01/24/17 10:18 07:45 07:22 Monocytes (%) (Auto) 8.2 % (0.0-8.0) Aspartate Amino Transf 43 U/L (15-37) (AST/SGOT) Alanine Aminotransferase 107 U/L (12-78) (ALT/SGPT) C-Reactive Protein 0.49 MG/DL (0.00-0.30) White Blood Count 13.1 TH/MM3 (4.0-11.0) Neutrophils (%) (Auto) 79.5 % 74.8 % (16.0-70.0) (16.0-70.0) Neutrophils # (Auto) 10.4 TH/MM3 (1.8-7.7) Monocytes # (Auto) 1.0 TH/MM3 (0-0.9) Imaging Last Impressions Soft Tissue Ultrasound 01/22/17 0000 Signed Impressions: Service Date/Time: Sunday, January 22, 2017 10:57 - CONCLUSION: Indurated tissue probably inflammatory without abscess formation.. Reinaldo Padron MD FACR Finger X-Ray 01/22/17 0000 Signed Impressions: Service Date/Time: Sunday, January 22, 2017 10:32 - CONCLUSION: Generalized soft tissue swelling. There is no evidence for fracture or radiopaque foreign body. Inflammatory process is suspected. Reinaldo Padron MD FACR PE at Discharge General: well-appearing male sitting up in bed in no distress, eating breakfast. Left thumb wrapped in gauze, no surrounding erythema. Runs out of room to leave after phone conversation. Patient left AMA Hospital Course Patient admitted for management of left hand cellulitis. He has hx of MRSA, I&D performed 01/22 with wound culture +MRSA. He has given IV Vanc and pain meds as inpt. He left AMA morning of 01/24/17. Dr. Lazaro (hand sx) was consulted ; PA saw patient and performed I&D with packing placed. Packing spontaneously removed on 01/23. Basic wound care and wrapping performed by nursing. Dr. Lazaro recommended Bactrim and Doxycycline PO and discharge home over the phone just prior to patient leaving AMA, and patient was given paper scripts for both prior to his leaving. He was counseled on the risks of potential complication with the hand if leaving AMA and expressed understanding. He was discharged AMA in stable condition and told to return to ED if he had worsening symptoms. Pt Condition on Discharge: Stable Discharge Instructions New Medications: Doxycycline Hyclate (Doxycycline Hyclate) 100 Mg Cap 100 MG PO BID #20 CAP Sulfamethoxazole-Trimethoprim (Bactrim DS) 800-160 Mg Tab 2 TAB PO Q12HR #40 TAB Sabina Pacheco MD R1 January 24, 2017 11:01
--- NOTE | 2017-02-26 18:43 | RADRPT ---
EXAM DATE/TIME: 01/22/2017 10:57 CORRECTION Corrected on: February 26, 2017; changed report header from US SOFT TISSUE, to US ARM LEFT [place] COMPARISON: No previous studies available for comparison. INDICATIONS : Left thumb swelling and pain. MEDICAL HISTORY : Left thumb pain and swelling. SURGICAL HISTORY : None. ENCOUNTER: Initial ACUITY: 4-6 days PAIN SCORE: 10/10 LOCATION: Left thumb. AREA EVALUATED: Left thumb. FINDINGS: As the complex area measuring 2 cm that is confined to the deep and superficial tissues without defin ed fluid collection. Early premature process without abscess would be consideration. CONCLUSION: Indurated tissue probably inflammatory without abscess formation.. Reinaldo Padron MD FACR on January 22, 2017 at 11:24 Board Certified Radiologist. This report was verified electronically. on February 26, 2017 at 18:28 Board Certified Radiologist. This report was verified electronically.
== END 2017-01-24 09:29 | disposition left against medical advice (07) ==
LOC: NEPE 09:38 → INTOOBSV 12:38 → NEDA 12:38 → NEPGCP 15:02
PROVIDERS: ADMIT Family Medicine; ATTEND Family Medicine
DX: L03.012 Cellulitis of left finger (principal); L02.512 Cutaneous abscess of left hand; B95.62 Methicillin resistant Staphylococcus aureus infection as the cause of diseases classified elsewhere; M79.645 Pain in left finger(s); R60.9 Edema, unspecified; R73.09 Other abnormal glucose; R79.82 Elevated C-reactive protein (CRP); F17.210 Nicotine dependence, cigarettes, uncomplicated; F19.10 Other psychoactive substance abuse, uncomplicated; Z16.11 Resistance to penicillins; Z16.19 Resistance to other specified beta lactam antibiotics; Z91.19 Patient's noncompliance with other medical treatment and regimen
CPT/HCPCS: 26010; 73140; 76882; 80048; 80053; 80074; 82948; 85025; 85652; 86140; 86403; 87040; 87070; 87147; 87186; 87205; 87641; 90715; 96365; 96375; 96376; 99285; G0378; J1170; J3370; J7050; 10061; 76999

== ENCOUNTER 2017-01-27 10:08 | Emergency (ER) | payer BC ==
[~2017-01-27] VITALS: Ht 177.8 cm; Wt 85.0 kg
[~2017-01-27 10:08] MED LIST: BACT800T5 PO; DOXY100C PO
[2017-01-27 10:10] VITALS: BP 133/72; PULSE 122; RESP 20; TEMP 98; O2SAT 99
[2017-01-27] MEDS ORDERED: CLINDAMYCIN PHOS 600 MG/4 ML VIAL IM ONE (10:45)
--- NOTE | 2017-01-27 10:51 | PD ---
HPI Chief Complaint: Skin Problem Time Seen by Provider: 10:36 Travel History International Travel<30 days: No Contact w/Intl Traveler<30days: No Traveled to known affect area: No History of Present Illness HPI PATIENT HAS BEEN NONCOMPLIANT SINCE I &D, DID NOT FILL ANTIBIOTICS PRESCRIBED LAST TIME HE WAS SEEN, NEGATIVE FEVER/RASH/ PFSH Past Medical History Asthma: No Blood Disorders: No Heart Rhythm Problems: No Cancer: No Cardiovascular Problems: No High Cholesterol: No Chemotherapy: No Chest Pain: No Congestive Heart Failure: No COPD: No Cystic Fibrosis: No Diminished Hearing: No Endocrine: No Genitourinary: No Headaches: No Hypertension: No Musculoskeletal: No Neurologic: No Psychiatric: No Reproductive: No Respiratory: No Migraines: No Radiation Therapy: No Seizures: No Sickle Cell Disease: No Sleep Apnea: No Past Surgical History Abdominal Surgery: No Appendectomy: No Cardiac Surgery: No Cholecystectomy: No Ear Surgery: Yes (TUBES(PLASTIC EARS)) Endocrine Surgery: No Eye Surgery: No Genitourinary Surgery: No Gynecologic Surgery: No Neurologic Surgery: No Oral Surgery: No Thoracic Surgery: No Social History Alcohol Use: Yes (SOCIAL) Tobacco Use: Yes (1PPWEEK) Substance Use: Yes Allergies-Medications (Allergen,Severity, Reaction): Coded Allergies: *MDRO Multi-Drug Resistant Organism (Verified Adverse Reaction, Unknown, ) MRSA PCR screen POSITIVE-01/23/17 MRSA (finger)-01/22/17 Reported Meds & Prescriptions Reported Meds & Active Scripts Active Bactrim DS (Sulfamethoxazole-Trimethoprim) 800-160 Mg Tab 2 Tab PO Q12HR Doxycycline Hyclate 100 Mg Cap 100 Mg PO BID Review of Systems Skin: Positive Rash, Positive Other Physical Exam Narrative GENERAL: SKIN: RIGHT THUMB EDEMATOUS, ERYTHEMA IS RESOLVING, INCISION OPEN BUT NOT SPONTANEOUSLY DRAINING, FUSIFORM EDEMA BUT 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 Normocephalic. EYES: Pupils equal and round. No scleral icterus. No injection or drainage. ENT: No nasal bleeding or discharge. Mucous membranes pink and moist. NECK: Trachea midline. No JVD. CARDIOVASCULAR: Regular rate and rhythm. RESPIRATORY: No accessory muscle use. Clear to auscultation. Breath sounds equal bilaterally. GASTROINTESTINAL: Abdomen soft, non-tender, nondistended. Hepatic and splenic margins not palpable. MUSCULOSKELETAL: Extremities without clubbing, cyanosis, or edema. No obvious deformities. NEUROLOGICAL: Awake and alert. No obvious cranial nerve deficits. Motor grossly within normal limits. Five out of 5 muscle strength in the arms and legs. Normal speech. PSYCHIATRIC: Appropriate mood and affect; insight and judgment normal. Data Data Last Documented VS Vital Signs Date Time Temp Pulse Resp B/P Pulse Ox O2 Delivery O2 Flow Rate FiO2 01/27/17 10:10 98.0 122 20 133/72 99 Room Air Orders Clindamycin Inj (Cleocin Inj) (01/27/17 10:45) Wound Care (01/27/17 10:41) Vancomycin Inj (Vancomycin Inj) (01/27/17 11:00) [facility] Medical Decision Making Medical Screen Exam Complete: Yes Emergency Medical Condition: Yes Differential Diagnosis PARTIALLY TREATED RT THUMB CELLULITIS/ABSCESS Narrative Course DUE TO MULTIPLE NONCOMPLIANT, WILL GIVE IV VANCO AND D/C WITH BACTRIM/DOXY COMBO AND FOLLOW UP WITH DR ROMERO HAND SURG Diagnosis Primary Impression: Cellulitis of thumb, right Referrals: Tigist Romero MD Patient Instructions: General Instructions Med/Other Pt SpecificInfo: Wound Care Scripts Doxycycline Hyclate 100 Mg [id number] Mg PO BID #20 CAP Ref 0 Prov:Wu Anderson MD 01/27/17 Sulfamethoxazole-Trimethoprim (Bactrim DS)800-160 Mg Tab1 Tab PO BID #20 TAB Ref 0 Prov:Wu Anderson MD 01/27/17 Disposition: 01 DISCHARGE HOME Condition: Stable Wu Anderson MD January 27, 2017 10:51
[2017-01-27] MEDS ORDERED: VANCOMYCIN INJ 1,000 MG in SODIUM CHLOR 0.9% 250 ML INJ 250 ML IV ONE (11:00)
[2017-01-27] MEDS ORDERED: DOXY100C PO (11:12)
[2017-01-27] MEDS ORDERED: BACT800T5 PO (11:12)
== END 2017-01-27 13:16 | disposition home or self-care (01) ==
LOC: NEPE 10:08
DX: L03.011 Cellulitis of right finger (principal); Z72.0 Tobacco use; F19.90 Other psychoactive substance use, unspecified, uncomplicated; R21 Rash and other nonspecific skin eruption
CPT/HCPCS: 96365; 99283; J3370; J7050